=== PATIENT | male | born 1995 | race African-American/Black ===

== ENCOUNTER 2019-07-08 15:47 | Emergency (ER) | payer SELFPAY ==
[~2019-07-08] VITALS: Ht 175.3 cm; Wt 61.4 kg
[2019-07-08 15:51] VITALS: Ht 175.3 cm; Wt 61.4 kg
[2019-07-08 16:15] LABS: APPEARANCE HAZY (CLEAR); BILIRUBIN NEGATIVE (NEGATIVE); COLOR YELLOW (YELLOW); GLUCOSE 250 mg/dL (NEGATIVE); KETONE NEGATIVE (NEGATIVE); NITRITE NEGATIVE (NEGATIVE); PROTEIN 1+ mg/dL (NEGATIVE); SPECIFIC GRAVITY 1.025 (1.005-1.020); UROBILINOGEN NORMAL (NORMAL)
[2019-07-08 16:18] LABS: EPITHELIAL CELLS 0-5 /hpf (0-5); WHITE CELLS - URINE >50 /hpf (NEGATIVE)
[2019-07-08 16:19] LABS: BACTERIA MODERATE /hpf (NEGATIVE); MUCUS <1+ /lpf (NONE SEEN)
[2019-07-08 16:39] VITALS: BP 124/84
== END 2019-07-08 16:40 | disposition home or self-care (01) ==
LOC: D.ER 15:47
PROVIDERS: Family Medicine
DX: R30.0 Dysuria (principal); R36.9 Urethral discharge, unspecified